=== PATIENT | female | born 1985 | race Caucasian/White ===

== ENCOUNTER 2018-07-27 11:51 | Day surgery (SDC) | payer OTHER ==
[~2018-07-27 11:51] MED LIST: Buffered Lidocaine 1% SYRIN* 1 ML/SYRINGE INTRADERM ONE; Lactated Ringers 1000 ML Bag* 1,000 ML IV SCH
[2018-07-27] MEDS ORDERED: Clindamycin 900 MG IVPREMIX(* 900 MG/50 ML SDV IV ONE ×2 (12:05→14:49)
[2018-07-27] MEDS ORDERED: Lidocaine 2% PF * 5 ML VIAL ONE (13:19)
[2018-07-27] MEDS ORDERED: Midazolam* 1 MG/ML 2 ML VIAL (2 MG) ONE (13:19)
[2018-07-27] MEDS ORDERED: fentaNYL* 50 MCG/ML 2 ML VIAL (100 MCG VIAL) ONE (13:19)
[2018-07-27] MEDS ORDERED: Propofol* 10 MG/ML 20 ML BTL ONE (13:19)
[2018-07-27] MEDS ORDERED: Propofol* 500 MG/50 ML BTL ONE (13:35)
[2018-07-27] MEDS ORDERED: Bupivacaine 0.25% SDV* 30 ML ONE (14:06)
[2018-07-27] MEDS ORDERED: Metoclopramide IV* 5 MG/ML 2 ML VIAL ONE ×2 (14:49→17:26)
[2018-07-27] MEDS ORDERED: Ondansetron INJ* 2 MG/ML VIAL ONE ×2 (14:49→17:26)
[2018-07-27] MEDS ORDERED: Dexamethasone IV* 4 MG/ML 1 ML (4 MG) ONE ×2 (14:49→17:26)
[2018-07-27] MEDS ORDERED: Ketorolac INJ* 30 MG/ML 1 ML VIAL ONE ×2 (14:49→17:26)
[2018-07-27] MEDS ORDERED: fentaNYL* 50 MCG/ML 2 ML VIAL (100 MCG VIAL) IV PRN (15:28)
[2018-07-27] MEDS ORDERED: oxyCODONE/Acetamin 5/325 MG* TAB PO PRN (15:28)
[2018-07-27] MEDS ORDERED: Naloxone* 0.4 MG/ML 1 ML VIAL IV PRN (15:28)
[2018-07-27] MEDS ORDERED: Acetaminophen TAB* 325 MG PO PRN (15:28)
[2018-07-27] MEDS ORDERED: DiMENhydriNATE IV* 50 MG/ML VIAL IV PUSH PRN (15:28)
[2018-07-27] MEDS ORDERED: Succinylcholine* 20 MG/ML 10 ML VIAL ONE (16:16)
[2018-07-27] MEDS ORDERED: oxyCODONE/Acetamin 5/325 MG* TAB ONE (17:10)
[2018-07-27 17:20] VITALS: BP 130/71
[2018-07-27] MEDS ORDERED: EPHEDrine (Pressors)* 50 MG/ML VIAL ONE (17:23)
--- NOTE | 2018-07-27 22:49 | OP ---
OPERATIVE REPORT: DATE OF OPERATION: 07/27/18 - MAIN DATE OF : 81 SURGEON: Richard Moya MD DEVELOPMENT SPECIALIST: FERNANDO Silva An tourist information assistant was needed for the entirety of the procedure to aid in positioning of the arm and retraction. ANESTHESIOLOGIST: Dr. Stahl. ANESTHESIA: General. PRE-OP DIAGNOSES: 1. Left elbow, lateral epicondylitis. 2. Left radial tunnel syndrome. POST-OP DIAGNOSES: 1. Left elbow, lateral epicondylitis. 2. Left radial tunnel syndrome. OPERATIVE PROCEDURE: 1. Left elbow lateral epicondylitis, debridement of extensor carpi radialis brevis tendon origin and repair of tendon using a Mitek suture anchor. 2. Left radial tunnel release. INDICATIONS: Rosalia is 32. She has had pretty severe pain in that area for a long time. We talked about her options. She understands that with this particular surgery that some people do not get better like they anticipate. She also understands there is a risk of nerve injury to the posterior interosseous nerve. She understands all these things and wishes to proceed. ESTIMATED BLOOD LOSS: 5 mL. COMPLICATIONS: None. FINDINGS: See above and below. DESCRIPTION OF PROCEDURE: Rosalia was seen in the preoperative holding area. The correct site, side, and procedure were identified. We came back to the operating room. The arm was prepped and draped in the usual fashion and a time- out was performed. The arm was exsanguinated with the Esmarch and the tourniquet was inflated to 250 mmHg. I began by first making an incision centered over the lateral epicondyle. Dissection was carried down through the subcutaneous tissue. Full- thickness flaps were raised right off of the fascia overlying the common extensor tendon. I developed the interval between the EDC and ECRL to gain access to the ECRB tendon. The degenerative tissue there was released right off of the lateral epicondyle. The ECRB tendon was released in its entirety. The debridement specimen was sent off to the pathologist. Once I had fully debrided this all the way down, I tracked it down to encounter the joint capsule. I did make a small arthrotomy to confirm I was all the way down to the joint level. The curette was used to freshen up the bone. Once the debridement was complete, I placed a Mitek suture anchor in the footprint where I cleaned up the bone. This was then sewed into the ECRB tendon remnant down a little bit into the lateral ulnar collateral ligament. This was all tied down to tighten up the lateral structures. The wound was then irrigated out. The fascia was closed with 2-0 Vicryl suture. The subcutaneous tissue was reapproximated with 2-0 Vicryl and the skin was closed with 4-0 nylon suture. I then made a longitudinal incision starting just distal to the elbow flexion crease and extending down in line with the interval between the brachioradialis and the ECRL muscle. Full-thickness flaps were raised off of the fascia and the sensory nerves were preserved. The subcutaneous tissue was dissected down through bluntly to preserve the sensory nerves. I then was able to visualize the fascial streak where the interval between the brachioradialis and the ECRL was at that was then opened up and blunt finger dissection took me down to the radial nerve. The retractors were placed to retract the brachioradialis and the ECRL out of the way. I first encountered the superficial branch of the radial nerve and this was dissected out in its entirety. This was dissected approximately until the trifurcation was encountered with the joint branch to the ECRB and the posterior interosseous nerve. The branch to ECRB was dissected out. The leash of Arturo was released with hemoclips. I then tracked the posterior interosseous nerve distally. I first encountered the ECRB tendon and this was again released deep to that with the supinator. The leading tendinous edge of the supinator was released and then I released the supinator muscle in its entirety. Great care was taken to not injure the venae comitantes adjacent to the posterior interosseous nerve. There was only just 1 little spot of bleeding that was cauterized with the bipolar. At this point, the release was looking excellent, all of the branches of the radial nerve including the branches to the supinator were able to be identified. I went ahead and took my release just a little bit more proximal. There was a few of fascial bands, were released with the scissors. I irrigated out the wound. The subcutaneous tissue was reapproximated with 3-0 Vicryl suture and the skin was closed with 4-0 nylon suture. 0.25% Marcaine was infiltrated around both of the wounds. The long arm splint with the lateral buttress was applied. She was then woken up and taken to the recovery room in stable condition. [id number]/[facility] #: [id number] YELENA
== END 2018-07-27 17:43 | disposition home or self-care (01) ==
LOC: OREAST 11:51
PROVIDERS: ATTEND Orthopaedic Surgery Hand Surgery
DX: G56.32 Lesion of radial nerve, left upper limb (principal); M77.12 Lateral epicondylitis, left elbow; R01.1 Cardiac murmur, unspecified; M51.36 Other intervertebral disc degeneration, lumbar region
CPT/HCPCS: 88304; A9270-GY; C1713; J0330; J1100; J1885; J2250; J2405; J2704; J2765; J3010; J3490

== ENCOUNTER 2019-07-17 15:45 | Emergency (ER) | payer OTHER ==
--- NOTE | 2019-07-17 16:09 | UC ---
Throat Pain/Nasal Andrea HPI - HPI Summary HPI Summary: 33 yo with sore throat and left ear pain x 1 day. She has no fever, cough, shortness of breath, or contact with COVID. - History of Current Complaint Stated Complaint: SORE THROAT/LT EAR PAIN Time Seen by Provider: 07/17/19 16:00 Hx Obtained From: Patient Onset/Duration: Gradual Onset, Lasting Days Cough: None Associated Signs & Symptoms: Positive: Dysphagia - Epiglottits Risk Factors Epiglottis Risk Factors: Negative - Allergies/Home Medications Allergies/Adverse Reactions: Allergies Allergy/AdvReac Type Severity Reaction Status Date / Time cillins Allergy Severe rash, Uncoded 07/17/19 16:05 throat closes Home Medications: Home Medications Multivitamin [Multiple Vitamins] 1 tab PO QAM 07/20/18 [History Confirmed ] Acetaminophen TAB* [Tylenol TAB*] 650 mg PO Q4H PRN 07/17/19 [History Confirmed 07/17/19] Azithromyxin JOSAFAT (NF) [Z-Josafat (Zithromax) 250 mg tabs #6] 2 tab PO .TODAY, THEN 1 DAILY #6 tab 07/17/19 [Rx] PMH/Surg Hx/FS Hx/Imm Hx Previously Healthy: Yes - Surgical History Surgical History: Yes Surgery Procedure, Year, and Place: right leg surgery nerve release 2 years [place], [place]. 2 c-sections - Family History Known Family History: Positive: None - Social History Occupation: Employed Full-time Lives: With Family Alcohol Use: None Substance Use Type: None Smoking Status (MU): Never Smoked Tobacco Review of Systems All Other Systems Reviewed And Are Negative: Yes Constitutional: Positive: Fatigue Skin: Positive: Negative Eyes: Positive: Negative ENT: Positive: Sore Throat, Ear Ache Respiratory: Positive: Negative Cardiovascular: Positive: Negative Gastrointestinal: Positive: Negative Genitourinary: Positive: Negative Motor: Positive: Negative Neurovascular: Positive: Negative Musculoskeletal: Positive: Negative Neurological/Mental Status: Positive: Negative. Negative: Headache Psychological: Positive: Negative Is Patient Immunocompromised?: No Physical Exam Triage Information Reviewed: Yes Appearance: Ill-Appearing - looks fatigued and mildly unwell Vital Signs Reviewed: Yes ENT: Positive: Pharyngeal erythema, Tonsillar swelling. Negative: Tonsillar exudate Neck exam: Normal Neck: Positive: Supple, Nontender, Enlarged Nodes @ - tonsillar Respiratory: Positive: Lungs clear Cardiovascular: Positive: RRR, No Murmur Musculoskeletal Exam: Normal Neurological Exam: Normal Psychological Exam: Normal Skin Exam: Normal Diagnostics - Laboratory Lab Results: rapid strep negative Throat Pain/Nasal Course/Dx - Course Course Of Treatment: azithromycin for treatment of tonsillitis. off work x 1 day. - Differential Dx/Diagnosis Differential Diagnosis/HQI/PQRI: Pharyngitis, Tonsillitis, URI Provider Diagnosis: Tonsillitis Discharge ED - Sign-Out/Discharge Documenting (check all that apply): Patient Departure All imaging exams completed and their final reports reviewed: No Studies - Discharge Plan Condition: Stable Disposition: HOME Prescriptions: Azithromyxin JOSAFAT (NF) [Z-Josafat (Zithromax) 250 mg tabs #6] 2 tab PO .TODAY, THEN 1 DAILY #6 tab Patient Education Materials: Tonsillitis (ED) Forms: *Work Release Referrals: Kaykay Corea NP [Primary Care Provider] - Additional Instructions: Begin azithromycin for treatment of tonsillitis. Off work tomorrow; rest at home. Increase fluids. You can use ibuprofen or acetaminophen for control of pain. Warm water and salt gargling can help to relieve tonsillar pain and swelling. - Billing Disposition and Condition Condition: STABLE Disposition: Home
[2019-07-17 16:16] VITALS: BP 118/74
== END 2019-07-17 16:41 | disposition home or self-care (01) ==
LOC: UCCORT 15:45
DX: J03.90 Acute tonsillitis, unspecified (principal); Z88.0 Allergy status to penicillin
CPT/HCPCS: 87651; 99212; G0463